=== PATIENT | male | born 1970 | race Two or more races ===

== ENCOUNTER 2023-04-22 00:55 | Inpatient (IN) | payer OTHER, MEDICAID ==
[~2023-04-22] VITALS: Ht 172.7 cm; Wt 91.4 kg
[2023-04-22] VITALS (13 sets, daily range): BP systolic 113–148; BP diastolic 66–107; PULSE 73–96; RESP 10–16; TEMP 97.8–99.2; O2SAT 95–98
[2023-04-22 01:44] LABS: Basophils # (auto) 0.1 10 ^3/uL (0-0.2); Basophils % (auto) 0.7 % (0.0-2.0); Eosinophils # (auto) 0.3 10 ^3/uL (0-0.8); Eosinophils % (auto) 1.9 % (0.0-7.0); Hematocrit 44.5 % (41.0-53.0); Hemoglobin 15.3 g/dL (13.5-17.5); Lymphocytes # (auto) 2.3 10 ^3/uL (0.4-5.4); Lymphocytes % (auto) 16.6 % (10.0-50.0); Mean Corpuscular Hemoglobin 30.8 pg (28.0-32.0); Mean Corpuscular Hgb Conc. 34.4 g/dL (32.0-36.0); Mean Corpuscular Volume 89.6 fL (80.0-100.0); Monocytes # (auto) 0.7 10 ^3/uL (0-1.3); Monocytes % (auto) 5.1 % (0.0-12.0); Neutrophils # (auto) 10.6 10 ^3/uL (1.6-8.6); Neutrophils % (auto) 75.7 % (37.0-80.0); Red Blood Cells 4.96 10^6/uL (4.5-5.90); Red Cell Distribution Width 13.5 % (11.8-14.3); White Blood Cell 14.1 10^3/uL (4.4-10.8)
[2023-04-22 02:02] LABS: Albumin 4.3 g/dL (3.4-5.0); Calcium 9.6 mg/dL (8.5-10.1); Magnesium 2.2 mg/dL (1.6-2.6); Potassium 3.8 mmol/L (3.5-5.1)
[2023-04-22 02:04] LABS: BUN/Creatinine Ratio 11.4 (10.0-20.0)
[2023-04-22 02:06] LABS: Bilirubin, Total 0.4 mg/dL (0.2-1.0); Total Protein 7.6 g/dL (6.4-8.2)
[2023-04-22] MEDS ORDERED: ONDANSETRON HCL 4 MG/2 ML VIAL IV ONE (04:45)
[2023-04-22] MEDS ORDERED: ENOXAPARIN SOD 100 MG/1 ML SYRINGE SC ONE (04:45)
[2023-04-22] MEDS ORDERED: METOPROLOL TARTRATE 1MG/1ML-5ML VIAL IV ONE (04:45)
[2023-04-22] MEDS ORDERED: MORPHINE SULFATE 4 MG/ML SYR/VIAL IV ONE (04:45)
[2023-04-22] MEDS ORDERED: ASPirin 325 MG TAB PO ONE (04:45)
[2023-04-22] MEDS ORDERED: ONDANSETRON HCL 4 MG/2 ML VIAL IV PRN (06:00)
[2023-04-22] MEDS ORDERED: TEMAZEPAM 15 MG CAP PO PRN (06:00)
[2023-04-22] MEDS ORDERED: MORPHINE SULFATE INJ 2 MG/ml SYRG IV PRN ×2 (06:00→14:15)
[2023-04-22] MEDS ORDERED: DEXTROSE (50%) 50ML SYRG IV PRN (06:00)
[2023-04-22] MEDS ORDERED: NITROGLYCERIN 0.4 MG SL TAB SL PRN ×2 (06:00→14:15)
[2023-04-22] MEDS: InsuLIN REG 1unit/0.01ml Soln (100units/ml) SC SCH ×4 (08:04→21:25)
[2023-04-22] MEDS: ACCU-CHEK COMFORT CURVE STRIP VI SCH ×4 (08:04→21:19)
[2023-04-22] MEDS: PANTOPRAZOLE 40 MG TAB PO SCH (09:34)
[2023-04-22] MEDS ORDERED: ASPirin 81 mg TAB PO SCH ×2 (10:00)
[2023-04-22] MEDS ORDERED: METOPROLOL TARTRATE 25 MG TAB PO SCH (10:00)
[2023-04-22 11:30] LABS: Cholesterol 171 mg/dL (< 200); HDL Cholesterol 26 mg/dL (40-59); LDL Cholesterol 100 mg/dL (< 100); Triglycerides 288 mg/dL (< 150)
[2023-04-22] MEDS ORDERED: HEPARIN DRIP/D5W 100UNITS/ML 250 ML IV SCH (11:30)
[2023-04-22] MEDS ORDERED: TICAGRELOR 90 MG TAB PO ONE (12:00)
[2023-04-22 12:02] LABS: Basophils # (auto) 0.1 10 ^3/uL (0-0.2); Basophils % (auto) 0.8 % (0.0-2.0); Eosinophils # (auto) 0.2 10 ^3/uL (0-0.8); Eosinophils % (auto) 2.3 % (0.0-7.0); Hematocrit 41.8 % (41.0-53.0); Hemoglobin 14.1 g/dL (13.5-17.5); Lymphocytes # (auto) 2.9 10 ^3/uL (0.4-5.4); Lymphocytes % (auto) 29.8 % (10.0-50.0); Mean Corpuscular Hemoglobin 30.5 pg (28.0-32.0); Mean Corpuscular Hgb Conc. 33.6 g/dL (32.0-36.0); Mean Corpuscular Volume 90.8 fL (80.0-100.0); Monocytes # (auto) 0.7 10 ^3/uL (0-1.3); Monocytes % (auto) 7.6 % (0.0-12.0); Neutrophils # (auto) 5.7 10 ^3/uL (1.6-8.6); Neutrophils % (auto) 59.5 % (37.0-80.0); Nucleated Red Blood Cells % 0.1 %; Red Blood Cells 4.61 10^6/uL (4.5-5.90); Red Cell Distribution Width 13.1 % (11.8-14.3); White Blood Cell 9.7 10^3/uL (4.4-10.8)
[2023-04-22 12:18] LABS: INR 1.02 (0.9-1.15); Partial Thromboplastin Time 32.5 SEC (24.5-34.5)
[2023-04-22] MEDS: SODIUM CHLORIDE 0.9% 1,000 ML IV SCH (12:23)
[2023-04-22] MEDS ORDERED: HEPARIN SODIUM (PORCINE) 5000 UNITS/ML 1ML VIAL ONE ×2 (12:27→13:28)
[2023-04-22] MEDS ORDERED: VERAPAMIL 2.5MG/ML INJ 2ML VIAL IV ONE (12:27)
[2023-04-22] MEDS ORDERED: LIDOCAINE 2%HCL (LOCAL ANESTH.) INJ 20ML MDV ONE (12:28)
[2023-04-22] MEDS ORDERED: fentaNYL CITRATE 100 MCG/2 ML VL ONE (12:28)
[2023-04-22] MEDS ORDERED: MIDAZOLAM HCL 2MG/2ML 2ml VIAL (1mg/ml) ONE (12:28)
[2023-04-22 12:31] LABS: Urine Bacteria NONE SEEN /hpf (None Seen); Urine Blood Negative /uL (Negative); Urine Hyaline Cast FEW /lpf (0 - 2); Urine Mucus FEW (None Seen); Urine Specific Gravity 1.024 (1.001-1.035); Urine WBC 60 /hpf (0 - 3)
[2023-04-22 12:48] LABS: Cannabinoid Screen, Urine NEGATIVE (NEGATIVE)
[2023-04-22 12:50] LABS: Alcohol, Urine < 3.0 mg/dL (0-10); Amphetamine Screen, Urine NEGATIVE (NEGATIVE); Barbiturate Scree,Urine NEGATIVE (NEGATIVE); Benzodiazephine Screen, Urine NEGATIVE (NEGATIVE); Cocaine Screen, Urine NEGATIVE (NEGATIVE); Opiate Scree,Urine POSITIVE (NEGATIVE); Phencyclidine Screen, Urine NEGATIVE (NEGATIVE)
[2023-04-22] MEDS ORDERED: LIDOCAINE 1% HCL (LOCAL ANESTH.) INJ 20ML MDV ONE (12:58)
[2023-04-22] MEDS ORDERED: IODIXANOL 320MG/ML 100ML BTL IV ONE (13:21)
[2023-04-22] MEDS ORDERED: ASPirin 81 mg TAB ONE (13:50)
[2023-04-22] MEDS ORDERED: hydrALAZINE HCL 20 MG/ML VL ONE (13:57)
[2023-04-22] MEDS ORDERED: ACETAMINOPHEN 500 MG TAB PO PRN (14:15)
[2023-04-22] MEDS ORDERED: SODIUM CHLORIDE 0.9% 1,000 ML IV SCH (14:15)
[2023-04-22] MEDS: ACETAMINOPHEN 325 MG TAB PO PRN ×2 (15:40→21:17)
[2023-04-22] MEDS ORDERED: cefTRIAXone 1GM/50ML D5W 50 ML IV ONE (16:15)
[2023-04-22] MEDS ORDERED: ATOR20TA50 PO (16:31)
[2023-04-22] MEDS ORDERED: FENO54TA4 PO (16:31)
[2023-04-22] MEDS ORDERED: METF-370 PO (16:31)
[2023-04-22] MEDS ORDERED: BENA-19 PO (16:31)
[2023-04-22] MEDS: TICAGRELOR 90 MG TAB PO SCH (21:18)
[2023-04-22] MEDS: ATORVASTATIN 20 MG TAB PO SCH (21:18)
[2023-04-22] MEDS ORDERED: METOPROLOL TARTRATE 50 MG TAB PO SCH (22:00)
[2023-04-22] MEDS ORDERED: ATORVASTATIN 20 MG TAB PO SCH (22:00)
[2023-04-23 05:00] VITALS: BP 98/63; PULSE 80; RESP 16; TEMP 98.4; O2SAT 96
[2023-04-23] MEDS: ACCU-CHEK COMFORT CURVE STRIP VI SCH ×4 (06:20→22:25)
[2023-04-23] MEDS: InsuLIN REG 1unit/0.01ml Soln (100units/ml) SC SCH ×4 (06:21→22:31)
[2023-04-23] MEDS: SODIUM CHLORIDE 0.9% 1,000 ML IV SCH (06:21)
[2023-04-23 06:27] LABS: Basophils # (auto) 0 10 ^3/uL (0-0.2); Basophils % (auto) 0.4 % (0.0-2.0); Eosinophils # (auto) 0.3 10 ^3/uL (0-0.8); Eosinophils % (auto) 2.4 % (0.0-7.0); Hematocrit 41.6 % (41.0-53.0); Hemoglobin 14.1 g/dL (13.5-17.5); Lymphocytes # (auto) 2.4 10 ^3/uL (0.4-5.4); Lymphocytes % (auto) 22.3 % (10.0-50.0); Mean Corpuscular Hemoglobin 30.7 pg (28.0-32.0); Mean Corpuscular Volume 90.4 fL (80.0-100.0); Monocytes # (auto) 0.8 10 ^3/uL (0-1.3); Monocytes % (auto) 7.8 % (0.0-12.0); Neutrophils # (auto) 7.2 10 ^3/uL (1.6-8.6); Neutrophils % (auto) 67.1 % (37.0-80.0); Nucleated Red Blood Cells % 0.2 %; Red Cell Distribution Width 13.5 % (11.8-14.3); White Blood Cell 10.7 10^3/uL (4.4-10.8)
[2023-04-23 06:40] LABS: BUN/Creatinine Ratio 11.9 (10.0-20.0); Calcium 9.4 mg/dL (8.5-10.1); Magnesium 2.2 mg/dL (1.6-2.6); Potassium 4.5 mmol/L (3.5-5.1)
[2023-04-23] MEDS: cefTRIAXone 1GM/50ML D5W 50 ML IV SCH (08:59)
[2023-04-23 09:00] VITALS: BP 105/63; PULSE 73; RESP 20; TEMP 98.2; O2SAT 95
[2023-04-23] MEDS: NICOTINE 14 MG/24HR TOPICAL PATCH TD SCH (09:00)
[2023-04-23] MEDS: ASPirin 81 mg TAB PO SCH (09:02)
[2023-04-23] MEDS: PANTOPRAZOLE 40 MG TAB PO SCH (09:03)
[2023-04-23] MEDS: TICAGRELOR 90 MG TAB PO SCH ×2 (09:03→22:23)
[2023-04-23] MEDS ORDERED: ENOXAPARIN SOD 40 MG/0.4 ML SYRINGE SC SCH (10:00)
[2023-04-23 13:00] VITALS: BP 100/64; PULSE 90; RESP 20; TEMP 98.2; O2SAT 98
[2023-04-23 17:00] VITALS: BP 111/72; PULSE 92; RESP 20; TEMP 97.6; O2SAT 100
[2023-04-23 20:00] VITALS: PULSE 94; RESP 18
[2023-04-23] MEDS ORDERED: METOPROLOL TARTRATE 25 MG TAB PO SCH (22:00)
[2023-04-23] MEDS: ATORVASTATIN 20 MG TAB PO SCH (22:22)
[2023-04-23] MEDS: METOPROLOL TARTRATE 25 MG TAB PO SCH (22:23)
[2023-04-24 00:09] VITALS: BP 110/72; PULSE 99; RESP 18; TEMP 98.1; O2SAT 96
[2023-04-24] MEDS: ACCU-CHEK COMFORT CURVE STRIP VI SCH ×2 (06:51→12:22)
[2023-04-24] MEDS: InsuLIN REG 1unit/0.01ml Soln (100units/ml) SC SCH ×2 (06:53→12:22)
[2023-04-24 08:00] VITALS: BP 101/67; PULSE 81; RESP 18; TEMP 98; O2SAT 96
[2023-04-24 08:30] VITALS: BP 101/67; PULSE 82; RESP 18; TEMP 98; O2SAT 96
[2023-04-24] MEDS: cefTRIAXone 1GM/50ML D5W 50 ML IV SCH (08:45)
[2023-04-24] MEDS: ASPirin 81 mg TAB PO SCH (08:46)
[2023-04-24] MEDS: PANTOPRAZOLE 40 MG TAB PO SCH (08:46)
[2023-04-24] MEDS: TICAGRELOR 90 MG TAB PO SCH (08:46)
[2023-04-24] MEDS: METOPROLOL TARTRATE 25 MG TAB PO SCH (08:47)
[2023-04-24] MEDS: NICOTINE 14 MG/24HR TOPICAL PATCH TD SCH (08:48)
[2023-04-24] MEDS ORDERED: ATOR20TA50 PO (11:36)
[2023-04-24] MEDS ORDERED: ASPI-325 PO (11:36)
[2023-04-24] MEDS ORDERED: MET25T PO (11:36)
[2023-04-24] MEDS ORDERED: METF-371 PO (11:36)
[2023-04-24] MEDS ORDERED: TICA90TA PO (11:36)
[2023-04-24 13:00] VITALS: BP 122/85; PULSE 81; RESP 18; TEMP 98.2; O2SAT 97
[2023-04-24 13:25] VITALS: BP 101/67; PULSE 81; RESP 18; TEMP 98.2; O2SAT 97
[2023-04-24] MEDS ORDERED: METOPROLOL TARTRATE 25 MG TAB PO SCH (22:00)
== END 2023-04-24 15:40 | disposition home or self-care (01) | DRG 246 ==
LOC: ER 00:55 → TELE 05:56 → TELE-WESTW 16:19
PROVIDERS: ADMIT Nurse Practitioner; ATTEND Student in an Organized Health Care Education/Training Program
PROC: 4A023N7 Measurement of Cardiac Sampling and Pressure, Left Heart, Percutaneous Approach (ICD-10-PCS; principal; 2023-04-22)
PROC: 027035Z Dilation of Coronary Artery, One Artery with Two Drug-eluting Intraluminal Devices, Percutaneous Approach (ICD-10-PCS; 2023-04-22)
PROC: 4A033BC Measurement of Arterial Pressure, Coronary, Percutaneous Approach (ICD-10-PCS; 2023-04-22)
PROC: B211YZZ Fluoroscopy of Multiple Coronary Arteries using Other Contrast (ICD-10-PCS; 2023-04-22)
PROC: B215YZZ Fluoroscopy of Left Heart using Other Contrast (ICD-10-PCS; 2023-04-22)
DX: I21.4 Non-ST elevation (NSTEMI) myocardial infarction (principal); R65.11 Systemic inflammatory response syndrome (SIRS) of non-infectious origin with acute organ dysfunction; N39.0 Urinary tract infection, site not specified; E11.65 Type 2 diabetes mellitus with hyperglycemia; I10 Essential (primary) hypertension; E78.5 Hyperlipidemia, unspecified; E66.9 Obesity, unspecified; F11.10 Opioid abuse, uncomplicated; Z68.30 Body mass index [BMI] 30.0-30.9, adult; D72.829 Elevated white blood cell count, unspecified; Z79.02 Long term (current) use of antithrombotics/antiplatelets; Z79.82 Long term (current) use of aspirin; Z82.49 Family history of ischemic heart disease and other diseases of the circulatory system; Z71.6 Tobacco abuse counseling; Z72.0 Tobacco use
CPT/HCPCS: 36415; 71045; 76937; 80048; 80053; 80061; 80307; 81001; 82962; 83036; 83735; 83880; 84443; 84484; 85025; 85379; 85610; 85730; 87086; 92929; 92941; 93005; 93306; 93458; 93571; 99152; 99153; 99291; C1887; G0378; J0696; J1815; J2001; J2250; J2405; Q9967

== ENCOUNTER 2024-06-19 10:43 | Day surgery (SDC) | payer MEDICARE, MEDICAID ==
[2024-06-16 11:36] LABS: Urine Bacteria None Seen /hpf (None Seen)
[2024-06-16 11:51] LABS: Basophils # (auto) 0 10 ^3/uL (0-0.2); Basophils % (auto) 0.6 % (0.0-2.0); Eosinophils # (auto) 0.6 10 ^3/uL (0-0.8); Eosinophils % (auto) 8.6 % (0.0-7.0); Hemoglobin 13.3 g/dL (13.5-17.5); Lymphocytes # (auto) 1.7 10 ^3/uL (0.4-5.4); Lymphocytes % (auto) 25.6 % (10.0-50.0); Mean Corpuscular Hemoglobin 30.2 pg (28.0-32.0); Mean Corpuscular Volume 88.9 fL (80.0-100.0); Monocytes # (auto) 0.5 10 ^3/uL (0-1.3); Monocytes % (auto) 7.3 % (0.0-12.0); Neutrophils # (auto) 3.9 10 ^3/uL (1.6-8.6); Neutrophils % (auto) 57.9 % (37.0-80.0); Nucleated Red Blood Cells % 0.1 %; Platelet Count (auto) 229 10^3/uL (140-450); Red Blood Cells 4.39 10^6/uL (4.5-5.90); White Blood Cell 6.7 10^3/uL (4.4-10.8)
[2024-06-16 12:08] LABS: Urine Blood Negative /uL (Negative); Urine Clarity Clear (Clear); Urine Color Light-Yellow (Yellow); Urine Mucus FEW (None Seen); Urine Protein, UAD Negative (Negative); Urine Specific Gravity 1.017 (1.001-1.035); Urine Urobilinogen Normal (Negative); Urine WBC 8 /hpf (0 - 3); Urine pH 6.5 (5.0-9.0)
[2024-06-16 12:09] LABS: Alanine Aminotransferase 26 U/L (7-40); Albumin 4.5 g/dL (3.2-4.8); Alkaline Phosphatase 54 U/L (46-116); Anion Gap 8 (5-15); Aspartate Aminotransferase 17 U/L (13-40); BUN/Creatinine Ratio 8.5 (10.0-20.0); Bilirubin, Total 0.6 mg/dL (0.2-1.0); Blood Urea Nitrogen 10 mg/dL (9-23); Calcium 9.6 mg/dL (8.7-10.4); Carbon Dioxide 24 mmol/L (20-30); Chloride 108 mmol/L (98-107); Glucose 101 mg/dL (74-106); Potassium 4.6 mmol/L (3.5-5.1); Sodium 140 mmol/L (136-145)
[2024-06-16 12:12] LABS: INR 0.99 (0.9-1.15); Partial Thromboplastin Time 24.5 SEC (24.5-34.5); Prothrombin Time 10.7 sec (9.3-11.8)
[~2024-06-19] VITALS: Ht 175.3 cm; Wt 72.6 kg
[~2024-06-19 10:43] MED LIST: ASPI-325 PO; ATOR40TA52 PO; MET50T PO; PANT40TA2 PO; SEMA2INJ3 SC
[2024-06-19] MEDS ORDERED: LIDOCAINE 2% (LOCAL ANESTH.) PF 5ml SDV ONE (12:27)
[2024-06-19] MEDS ORDERED: PROPOFOL 10 MG/ML 20 ML IV ONE ×3 (12:27→13:37)
[2024-06-19 13:52] VITALS: PULSE 96; RESP 12; TEMP 98; O2SAT 98
[2024-06-19 14:15] VITALS: BP 136/88; PULSE 88; RESP 12; O2SAT 96
== END 2024-06-19 14:29 | disposition home or self-care (01) ==
LOC: GI 10:43
PROVIDERS: ATTEND Internal Medicine Gastroenterology
DX: R19.5 Other fecal abnormalities (principal); R19.4 Change in bowel habit; K29.50 Unspecified chronic gastritis without bleeding; K51.20 Ulcerative (chronic) proctitis without complications; K31.3 Pylorospasm, not elsewhere classified; K25.9 Gastric ulcer, unspecified as acute or chronic, without hemorrhage or perforation; K62.89 Other specified diseases of anus and rectum; K57.30 Diverticulosis of large intestine without perforation or abscess without bleeding; K64.8 Other hemorrhoids; I10 Essential (primary) hypertension; E11.9 Type 2 diabetes mellitus without complications; G43.909 Migraine, unspecified, not intractable, without status migrainosus; J45.909 Unspecified asthma, uncomplicated; E66.3 Overweight; I25.2 Old myocardial infarction; K21.9 Gastro-esophageal reflux disease without esophagitis; Z95.5 Presence of coronary angioplasty implant and graft; Z87.891 Personal history of nicotine dependence; Z79.82 Long term (current) use of aspirin; Z79.899 Other long term (current) drug therapy
CPT/HCPCS: 36415; 43239; 45380; 80053; 81001; 82962; 85025; 85610; 85730; 88305; 88312; 88342; J2001; J2704; J7030

== ENCOUNTER → 2025-07-06 | Day surgery (SDC) | payer MEDICARE, MEDICAID ==
[2025-07-01 12:50] LABS: Hematocrit 40.5 % (41.0-53.0); Hemoglobin 14.1 g/dL (13.5-17.5); Mean Corpuscular Hemoglobin 30.7 pg (28.0-32.0); Mean Corpuscular Volume 88.1 fL (80.0-100.0); Nucleated Red Blood Cells % 0.1 %
[2025-07-01 12:52] LABS: Urine Protein, UAD Negative (Negative)
[2025-07-01 13:03] LABS: INR 1.0 (0.9-1.15); Partial Thromboplastin Time 25.0 SEC (24.5-34.5); Prothrombin Time 10.6 sec (9.3-11.8)
[2025-07-01 13:08] LABS: Alanine Aminotransferase 30 U/L (7-40); Albumin 4.4 g/dL (3.2-4.8); Alkaline Phosphatase 67 U/L (46-116); Anion Gap 8 (5-15); BUN/Creatinine Ratio 8.5 (10.0-20.0); Blood Urea Nitrogen 11 mg/dL (9-23); Calcium 9.6 mg/dL (8.7-10.4); Carbon Dioxide 28 mmol/L (20-31); Chloride 104 mmol/L (98-107); Glucose 86 mg/dL (74-106); Sodium 140 mmol/L (136-145); Total Protein 7.0 g/dL (5.7-8.2)
[2025-07-01 13:09] LABS: Bilirubin, Total 0.7 mg/dL (0.2-1.0)
[2025-07-01 13:12] LABS: Potassium 5.2 mmol/L (3.5-5.1)
[~2025-07-06] VITALS: Ht 175.3 cm; Wt 79.4 kg
[~2025-07-06] MED LIST changes: +GLYCOPYRROLATE 0.2 MG/ML 1ML VIAL ONE; +IOHEXOL 300 MG/ML 100ML BOTTLE IJ ONE; +KETAMINE 50mg/ML 10ml Vial 10 ML ONE; +KETOROLAC TROMETH 30 MG/ML 1ML VIAL ONE; +LIDOCAINE 2% (LOCAL ANESTH.) PF 5ml SDV ONE; +MIDAZOLAM HCL 2MG/2ML 2ml VIAL (1mg/ml) ONE; +ONDANSETRON HCL 4 MG/2 ML VIAL ONE; +PROPOFOL 10 MG/ML 20 ML IV ONE; +fentaNYL CITRATE 100 MCG/2 ML VL ONE
[2025-07-06] MEDS: CIPROFLOXACIN 400MG/200ML 200 ML IV ONE (11:20)
--- NOTE | 2025-07-06 11:46 | DVHNC2 ---
Procedure - OPERATIVE REPORT Pre-op. Diagnosis: Renal Stone- 3 mm left lower pole calculus Left flank pain Post-op. Diagnosis: Same as pre-op diagnosis Operation: Extracorporeal Shockwave Lithotripsy cystoscopy with left retrograde pyelogram Anesthesia: General Indications: Patient was found to have symptomatic Urolithiasis. Patient is here to undergo ESWL therapy. Informed Consent: The procedure was explained to the patient. It's risks include but not limited to infection, bleeding, and damage to the kidney. Patient fully understood and signed the consent. Other options such as watchful waiting, Ureteroscopy, Percutaneous surgery and open surgery were also discussed. Details of Procedure: Under satisfactory anesthesia, the patient was positioned on the lithotripsy table. Using fluoroscopy the stone could not be localized. patient was placed in dorsal lithotomy position with the area of the genitalia prepped and draped in usual sterile manner. Twenty-one Ukrainian rigid cystoscope was used to inspect the urethra in the bladder. There was no urethral stricture disease or obstructive prostate findings. The left ureteric orifice was cannulated with six Ukrainian open-ended catheter and retrograde studywas performed. The lower pole calyx was placed onto the F2 focus for lithotripsy. Starting at low energy levels, shoc kwave treatment was commenced. The energy level was gradually increased and stone was fragmented. Once the treatment was completed, patient was then taken off the lithotripsy table and sent to recovery room in stable condition. Specimens: None Complications: None Findings: Stone Laterality: left Stone Location: lower pole calyce 3 mm Shocks Delivered: 1500 Max Power settin Fragmentation Quality: Well CHAVEZ HENSON MD Jul 06, 2025 11:46
--- NOTE | 2025-07-06 11:47 | DVHDS2 ---
New Physician D'charge PN Admitting Diagnosis Admitting Diagnosis Left nephrolithiasis and left flank pain Discharge Diagnosis Same Operations or Procedures Cystoscopy with left retrograde pyelogram and left ESWL Reason(s) For Hospitalization Surgery Treatment Plan Discharge Condition of Discharge Good Disposition Home Discharge Instructions Diet: Regular Activity: Light activity Activity comment: As tolerated Medications: Given Follow Up Care Follow Up/Referral: Follow up in 2-3 weeks Discharge Statement: "Patient was advised to return to the ER or call 911 if any headaches, dizziness, shortness of breath, chest pain, abdominal pain, bleeding, fevers, or worsening of medical condition. Patient was counseled about treatment plan, medications, possible side effects, patientverbalized understanding. All questions were answered to the best of my ability. This discharge took greater then 30 minutes in planning, reviewing documentation, counseling the patient, and discussing with other team members." CHAVEZ HENSON MD Jul 06, 2025 11:46
[2025-07-06 11:59] VITALS: PULSE 96; RESP 12; TEMP 97.2; O2SAT 95
[2025-07-06 12:12] VITALS: PULSE 95; RESP 12; O2SAT 98
[2025-07-06 12:44] VITALS: BP 129/91; PULSE 83; RESP 12; O2SAT 95
== END | disposition home or self-care (01) ==
LOC: SUR 08:45
PROVIDERS: ATTEND Urology
DX: N20.0 Calculus of kidney (principal); N40.1 Benign prostatic hyperplasia with lower urinary tract symptoms; N13.8 Other obstructive and reflux uropathy; E11.9 Type 2 diabetes mellitus without complications; J44.9 Chronic obstructive pulmonary disease, unspecified; I10 Essential (primary) hypertension; G43.909 Migraine, unspecified, not intractable, without status migrainosus; Z98.890 Other specified postprocedural states; Z79.899 Other long term (current) drug therapy
CPT/HCPCS: 36415; 50590; 52005; 80053; 81001; 82962; 85025; 85610; 85730; 87086; J0744; J1100; J1885; J2003; J2250; J2405; J2704; J3010; J7030; Q9967